=== PATIENT | male | born 1935 | race Caucasian/White ===

== ENCOUNTER → 2024-04-01 | Outpatient (CLI) | payer MEDICARE ==
[~2024-04-01] MED LIST: CEPHALEXIN500 M1 PO; FLOMAX 0.40.4 MG/CAP PO; LASIX 40MG TABL40 MG PO; VANTIN 200200 MG/TAB PO; ZESTRIL 5MG5 MG PO
== END ==
LOC: COL.RAD 12:10
DX: I82.811 Embolism and thrombosis of superficial veins of right lower extremity (principal)

== ENCOUNTER 2024-04-13 07:39 | Emergency (ER) | payer MEDICARE ==
[~2024-04-13] VITALS: Ht 180.3 cm; Wt 83.2 kg
[~2024-04-13 07:39] MED LIST changes: -CEPHALEXIN500 M1 PO
[2024-04-13 08:37] LABS: COLLECTION METHOD IN
[2024-04-13 09:00] LABS: PH 5.5 (5.0-8.5); URINE APPEARANCE CLOUDY (CLEAR/HAZY); URINE BLOOD 3+ (NEGATIVE); URINE COLOR YELLOW (YELLOW); URINE GLUCOSE NEGATIVE (NEGATIVE); URINE KETONE NEGATIVE (NEGATIVE); URINE NITRATE NEGATIVE (NEGATIVE); URINE PROTEIN(semi-quant) 1+ (NEGATIVE); URINE UROBILINOGEN 0.2 E.U/dL (0.2-1.0)
[2024-04-13] MEDS ORDERED: Cephalexin 500 MG CAP PO ONE (09:45)
[2024-04-13] MEDS ORDERED: CEPHALEXIN500 M1 PO (09:50)
[2024-04-13 10:30] VITALS: BP 133/100; PULSE 93; TEMP 97.9
== END 2024-04-13 10:30 | disposition home or self-care (01) ==
LOC: COL.ER 07:39
PROVIDERS: Emergency Medicine
DX: N39.0 Urinary tract infection, site not specified (principal)

== ENCOUNTER 2024-06-24 20:11 | Emergency (ER) | payer MEDICARE ==
[~2024-06-24] VITALS: Ht 180.3 cm; Wt 86.4 kg
[~2024-06-24 20:11] MED LIST changes: +CEPHALEXIN500 M1 PO
[2024-06-24 20:28] VITALS: TEMP 97.1
[2024-06-24 22:10] VITALS: BP 182/108; PULSE 83
[2024-07-04] MEDS ORDERED: CEPHALEXIN500 M1 PO (01:29)
== END 2024-06-24 22:10 | disposition home or self-care (01) ==
LOC: COL.ER 20:11
DX: T83.091A Other mechanical complication of indwelling urethral catheter, initial encounter (principal)

== ENCOUNTER → 2024-07-03 | Outpatient (CLI) | payer MEDICARE | LOC: COL.RAD 06:59 | DX: I82.411 Acute embolism and thrombosis of right femoral vein (principal) ==